=== PATIENT | female | born 1935 | race Caucasian/White ===

== ENCOUNTER 2018-10-21 12:08 | Outpatient (CLI) | payer MEDICARE, BC | END 2018-10-21 23:59 | disposition home or self-care (01) | LOC: VAS 12:08 | PROVIDERS: ATTEND Pediatrics Sports Medicine | DX: M17.12 Unilateral primary osteoarthritis, left knee (principal); M25.462 Effusion, left knee; M79.662 Pain in left lower leg | CPT/HCPCS: 93971 ==